=== PATIENT | female | born 1985 | race Hispanic/Latino ===

== ENCOUNTER 2021-08-22 13:12 | Observation (INO) | payer OTHER, SELFPAY ==
[2021-08-22] MEDS ORDERED: hydrALAZINE 20 MG/ML VIAL SLOW IVP PRN (14:42)
[2021-08-22] MEDS ORDERED: Docusate 100 MG CAP PO PRN (14:42)
[2021-08-22] MEDS ORDERED: Dextrose 5% in Water 1,000 ML IV PRN (16:15)
[2021-08-22] MEDS ORDERED: HumaLOG 300 UNITS/3 ML VIAL SC PRN (16:15)
[2021-08-22] MEDS ORDERED: Dextrose 50% Abboject 50 ML SYRINGE SLOW IVP PRN (16:15)
[2021-08-22 20:13] LABS: Hemoglobin A1c 5.4 % (4.0-6.0)
[2021-08-22] MEDS ORDERED: Lantus 1000 UNITS/10 ML VIAL SC SCH (21:00)
[2021-08-23] MEDS ORDERED: metFORMIN 500 MG TAB PO SCH ×2 (08:00→09:00)
[2021-08-23] MEDS: Aspirin 81 mg Enteric Coated Tablet PO SCH (09:54)
[2021-08-23] MEDS: metFORMIN 500 MG TAB PO SCH ×2 (09:54→17:44)
[2021-08-23 10:51] LABS: #Eosinphils 0.2 10x3/uL (0.0-0.5); #Monocytes 0.5 10x3/uL (0.0-1.1); #Neutrophils 4.7 10x3/uL (1.5-8.4); %Basophils 0.4 % (0.0-2.0); %Eosinophils 2.4 % (0.0-6.0); %Lymphocytes 18.3 % (18.0-47.0); %Monocytes 7.6 % (0.0-10.0); %Neutrophils 70.7 % (40.0-75.0); Hemoglobin 12.1 g/dL (12.0-15.5); Mean Corpuscular HGB CONC 33.3 g/dL (32.0-36.0); Mean Corpuscular Hemoglobin 27.7 pg (27.0-33.0); Mean Corpuscular Volume 83.1 fl (81.6-98.3); Mean Platelet Volume 10.9 fl (7.4-10.4); Platelet Count 223 10x3/uL (150-450); RBC Distribution Width 14.2 % (11.5-14.5); Red Blood Cell (RBC) Count 4.37 10x6/uL (3.90-5.03); White Blood Cell (WBC) Count 6.7 10x3/uL (3.5-10.5)
[2021-08-23 10:55] VITALS: BMI 26.2
[2021-08-23 10:58] LABS: ALT (SGPT) 38 U/L (8-55); AST (SGOT) 58 U/L (5-34); Albumin 3.1 g/dL (3.5-5.0); Alkaline Phosphatase 139 U/L (40-110); Anion Gap 13 mmol/L (10-20); BUN (Urea Nitrogen) 7 mg/dL (7.0-18.7); Bilirubin, Total 0.4 mg/dL (0.2-1.2); Calc. Creatinine Clearance 142 mL/min (70-130); Carbon Dioxide 20 mmol/L (22-29); Chloride 107 mmol/L (98-107); Globulin 3.4 g/dL (2.4-3.5); Glucose 158 mg/dL (70-105); Potassium 3.8 mmol/L (3.5-5.1); Protein, Total 6.5 g/dL (6.0-8.3); Sodium 136 mmol/L (136-145)
[2021-08-23] MEDS ORDERED: Lantus 1000 UNITS/10 ML VIAL SC SCH ×4 (12:00→21:00)
[2021-08-23 12:55] LABS: Creatinine, Urine 157.78 mg/dL (47-110)
[2021-08-23] MEDS: HumaLOG 300 UNITS/3 ML VIAL SC PRN (20:21)
[2021-08-23 20:43] LABS: SARS-CoV-2 PCR by NAA Indeterminate (NotDetected)
[2021-08-23 22:48] LABS: SARS-CoV-2 NAA Rapid Test Not Detected (NotDetected)
[2021-08-24] MEDS: HumaLOG 300 UNITS/3 ML VIAL SC PRN ×2 (05:51→11:34)
[2021-08-24] MEDS: Aspirin 81 mg Enteric Coated Tablet PO SCH (08:24)
[2021-08-24] MEDS: metFORMIN 500 MG TAB PO SCH (08:24)
[2021-08-24 11:50] VITALS: TEMP 98.4
[2021-08-24 17:20] VITALS: BP 120/72
== END 2021-08-24 15:15 | disposition home or self-care (01) ==
LOC: INTOOBSV 13:12 → CSHANTE 13:12
PROVIDERS: ADMIT Student in an Organized Health Care Education/Training Program; ATTEND Student in an Organized Health Care Education/Training Program
DX: O24.113 Pre-existing type 2 diabetes mellitus, in pregnancy, third trimester (principal); E11.65 Type 2 diabetes mellitus with hyperglycemia; O09.523 Supervision of elderly multigravida, third trimester; O99.213 Obesity complicating pregnancy, third trimester; O34.219 Maternal care for unspecified type scar from previous cesarean delivery; O36.63X0 Maternal care for excessive fetal growth, third trimester, not applicable or unspecified; O99.891 Other specified diseases and conditions complicating pregnancy; R74.01 Elevation of levels of liver transaminase levels; Z3A.31 31 weeks gestation of pregnancy; Z79.4 Long term (current) use of insulin; Z79.82 Long term (current) use of aspirin; Z79.84 Long term (current) use of oral hypoglycemic drugs; Z20.822 Contact with and (suspected) exposure to COVID-19
CPT/HCPCS: 36415; 36416; 76705; 76819; 80053; 82570; 83036; 84156; 85025; 86709; G0378; J1815; U0002; U0003; U0005

== ENCOUNTER 2021-09-09 23:24 | Day surgery (SDC) | payer SELFPAY ==
[2021-09-09 23:51] VITALS: BMI 28.5
[2021-09-10] MEDS ORDERED: hydrALAZINE 20 MG/ML VIAL SLOW IVP PRN (00:22)
[2021-09-10] MEDS ORDERED: Acetaminophen 500 MG TAB PO PRN (00:24)
[2021-09-10] MEDS ORDERED: Promethazine 25 MG TAB PO SCH (00:45)
[2021-09-10 00:56] LABS: Bilirubin 1+ (Negative); Blood, Urine Negative (Negative); Clarity Clear (Clear); Glucose, Urine (Dipstick) Normal (Negative); Ketone, Urine 5 mg/dL (Negative); Leukocyte 100 (Negative); Nitrite Negative (Negative); Protein, Urine (Dipstick) 30 mg/dl (Neg-Trace); Specific Gravity, Urine 1.025 (1.002-1.036)
[2021-09-10 01:00] LABS: Urine Culture Reflex No No
[2021-09-10 01:04] LABS: Bacteria/HPF 1+ HPF (None Seen); RBC/HPF 0-3 HPF (0-3)
[2021-09-10 01:47] LABS: Bilirubin 1+ (Negative); Blood, Urine 10 (Negative); Clarity Clear (Clear); Glucose, Urine (Dipstick) Normal (Negative); Ketone, Urine 5 mg/dL (Negative); Leukocyte 25 (Negative); Nitrite Negative (Negative); Protein, Urine (Dipstick) 15 mg/dl (Neg-Trace); Specific Gravity, Urine 1.025 (1.002-1.036)
[2021-09-10 01:54] LABS: Bacteria/HPF Rare-Few HPF (None Seen); RBC/HPF 0-3 HPF (0-3)
== END 2021-09-10 02:40 | disposition home or self-care (01) ==
LOC: CSHLD/OP 23:24
PROVIDERS: ATTEND Obstetrics & Gynecology
DX: O99.891 Other specified diseases and conditions complicating pregnancy (principal); R10.30 Lower abdominal pain, unspecified; O24.113 Pre-existing type 2 diabetes mellitus, in pregnancy, third trimester; O34.211 Maternal care for low transverse scar from previous cesarean delivery; O09.523 Supervision of elderly multigravida, third trimester; Z3A.33 33 weeks gestation of pregnancy; Z79.4 Long term (current) use of insulin; Z79.82 Long term (current) use of aspirin; Z79.84 Long term (current) use of oral hypoglycemic drugs
CPT/HCPCS: 51701; 81001; 99285; Q0169

== ENCOUNTER 2021-10-03 18:09 | Inpatient (IN) | payer MEDICAID, OTHER ==
[2021-10-03 12:51] LABS: Hemoglobin 11.8 g/dL (12.0-15.5); Mean Corpuscular Hemoglobin 25.7 pg (27.0-33.0); Mean Corpuscular Volume 77.8 fl (81.6-98.3); Mean Platelet Volume 12.9 fl (7.4-10.4); Platelet Count 206 10x3/uL (150-450); RBC Distribution Width 15.3 % (11.5-14.5); White Blood Cell (WBC) Count 6.5 10x3/uL (3.5-10.5)
[2021-10-03 13:18] LABS: Syphilis Antibody Nonreactive (Nonreactive); Syphilis Antibody Index 0.03 S/CO (<1.00 Non-Reactive)
[2021-10-03 13:19] LABS: Hep B Surf Ag Non-Reactive S/CO (NonReactive)
[2021-10-03 13:28] LABS: HBSAg Index 0.16 S/CO (0-0.99)
[2021-10-03] MEDS ORDERED: hydrALAZINE 20 MG/ML VIAL SLOW IVP PRN (18:41)
[2021-10-03 18:56] VITALS: BMI 28.3
[2021-10-03 19:10] LABS: #Monocytes 0.5 10x3/uL (0.0-1.1); #Neutrophils 4.7 10x3/uL (1.5-8.4); %Basophils 0.3 % (0.0-2.0); %Eosinophils 0.6 % (0.0-6.0); %Lymphocytes 21.5 % (18.0-47.0); %Monocytes 7.4 % (0.0-10.0); %Neutrophils 69.9 % (40.0-75.0); Hemoglobin 11.2 g/dL (12.0-15.5); Mean Corpuscular HGB CONC 32.7 g/dL (32.0-36.0); Mean Corpuscular Hemoglobin 25.6 pg (27.0-33.0); Mean Corpuscular Volume 78.3 fl (81.6-98.3); Mean Platelet Volume 12.4 fl (7.4-10.4); Platelet Count 203 10x3/uL (150-450); RBC Distribution Width 15.3 % (11.5-14.5); Red Blood Cell (RBC) Count 4.38 10x6/uL (3.90-5.03); White Blood Cell (WBC) Count 6.8 10x3/uL (3.5-10.5)
[2021-10-03 19:25] LABS: ALT (SGPT) 25 U/L (8-55); AST (SGOT) 44 U/L (5-34); Albumin 3.2 g/dL (3.5-5.0); Alkaline Phosphatase 206 U/L (40-110); Anion Gap 13 mmol/L (10-20); BUN (Urea Nitrogen) 10 mg/dL (7.0-18.7); Bilirubin, Total 0.5 mg/dL (0.2-1.2); Calc. Creatinine Clearance 169 mL/min (70-130); Calcium 9.2 mg/dL (7.8-10.44); Carbon Dioxide 19 mmol/L (22-29); Chloride 106 mmol/L (98-107); Globulin 3.6 g/dL (2.4-3.5); Glucose 99 mg/dL (70-105); Potassium 3.8 mmol/L (3.5-5.1); Protein, Total 6.8 g/dL (6.0-8.3); Sodium 134 mmol/L (136-145)
[2021-10-03 19:50] LABS: Creatinine, Urine 188.04 mg/dL (47-110)
[2021-10-03] MEDS ORDERED: Lantus 1000 UNITS/10 ML VIAL SC SCH (21:00)
[2021-10-03 21:20] LABS: SARS-CoV-2 PCR by NAA Not Detected (NotDetected)
[2021-10-03] MEDS: metFORMIN 500 MG TAB PO SCH (22:20)
[2021-10-03] MEDS ORDERED: Ondansetron PF 4 MG/2 ML Vial IVP PRN (23:07)
[2021-10-03] MEDS ORDERED: Promethazine HCl 25 MG/ML VIAL IM PRN (23:07)
[2021-10-03] MEDS ORDERED: Acetaminophen 500 MG TAB PO PRN (23:07)
[2021-10-04] MEDS ORDERED: HumaLOG 300 UNITS/3 ML VIAL SC PRN (08:06)
[2021-10-04] MEDS ORDERED: Dextrose 5% in Water 1,000 ML IV PRN (08:06)
[2021-10-04] MEDS ORDERED: Dextrose 50% Abboject 50 ML SYRINGE SLOW IVP PRN (08:06)
[2021-10-04] MEDS: metFORMIN 500 MG TAB PO SCH (08:43)
[2021-10-04] MEDS ORDERED: Ursodiol 300 MG CAP PO SCH (09:30)
[2021-10-04] MEDS ORDERED: Lantus 1000 UNITS/10 ML VIAL SC SCH (22:00)
[2021-10-05] MEDS ORDERED: Ursodiol 300 MG CAP PO SCH (08:00)
[2021-10-05] MEDS ORDERED: Bicitra 30 ML UDCUP PO PRN (10:48)
[2021-10-05] MEDS ORDERED: Famotidine/PF 20 mg/2ml Vial SLOW IVP PRN (10:48)
[2021-10-05] MEDS ORDERED: ceFAZolin 2 GM/Dextrose 50 ML 2 GM in Premix Bag 1 BAG IVPB SCH (11:00)
[2021-10-05] MEDS ORDERED: Naloxone HCl 0.4 mg/ml Vial IV PRN (11:27)
[2021-10-05] MEDS ORDERED: Ondansetron HCl/PF 4 MG/2 ML Vial IVP PRN (11:27)
[2021-10-05] MEDS ORDERED: Promethazine HCl 25 MG SUPP PR PRN (11:27)
[2021-10-05] MEDS ORDERED: Naloxone HCl 0.4 mg/ml Vial IVP PRN ×2 (11:27)
[2021-10-05] MEDS ORDERED: Meperidine HCl/PF 25 MG/ML VIAL SLOW IVP PRN (11:27)
[2021-10-05] MEDS ORDERED: Ketorolac Tromethamine 30 MG/ML VIAL IVP PRN (11:27)
[2021-10-05] MEDS ORDERED: diphenhydrAMINE 50 MG/ML VIAL IVP PRN (11:27)
[2021-10-05] MEDS ORDERED: Promethazine HCl 25 MG/ML VIAL IM PRN ×2 (11:27→16:50)
[2021-10-05] MEDS ORDERED: Fentanyl 100 MCG/2 ML VIAL SLOW IVP PRN (11:27)
[2021-10-05] MEDS ORDERED: Ondansetron PF 4 MG/2 ML Vial IVP PRN ×2 (11:27→16:50)
[2021-10-05] MEDS ORDERED: Moisturizing Cream (Eucerin) 113 GM JAR TOP PRN (11:27)
[2021-10-05] MEDS ORDERED: Communication Order-Pharmacy FS SCH (11:30)
[2021-10-05] MEDS ORDERED: Ketorolac Tromethamine 30 MG/ML VIAL IVP SCH (11:30)
[2021-10-05] MEDS ORDERED: PHENYLEPHRINE-NS 100 MCG/ML 10 ML SYRINGE ONE (12:00)
[2021-10-05] MEDS ORDERED: Morphine PF 10 MG/10 ML VIAL ONE (12:00)
[2021-10-05] MEDS ORDERED: Ketorolac Tromethamine 30 MG/ML VIAL ONE (12:00)
[2021-10-05] MEDS ORDERED: Ondansetron PF 4 MG/2 ML Vial ONE (12:00)
[2021-10-05] MEDS ORDERED: Dexamethasone 4 mg/ml Vial ONE (12:00)
[2021-10-05] MEDS ORDERED: Oxytocin 10 UNITS/ML VIAL ONE (12:00)
[2021-10-05] MEDS ORDERED: Boostrix 0.5 ML (Tdap) VIAL IM ONE (16:50)
[2021-10-05] MEDS ORDERED: NS w/ Oxytocin 30 units 500 ML IV SCH (16:50)
[2021-10-05] MEDS ORDERED: hydrALAZINE 20 MG/ML VIAL SLOW IVP PRN (16:50)
[2021-10-05] MEDS ORDERED: diphenhydrAMINE 25 MG CAP PO PRN (16:50)
[2021-10-05] MEDS ORDERED: Misoprostol 200 MCG TAB PR PRN (16:50)
[2021-10-05] MEDS: metFORMIN 500 MG TAB PO SCH (19:40)
[2021-10-05] MEDS: Lactated Ringer's 1,000 ML IV SCH (19:40)
[2021-10-05] MEDS: Docusate 100 MG CAP PO SCH (20:28)
[2021-10-05] MEDS ORDERED: Lantus 1000 UNITS/10 ML VIAL SC SCH ×2 (21:00)
[2021-10-05] MEDS ORDERED: HYDROcodone/Acetaminophen 5/325 mg Tablet PO PRN (23:30)
[2021-10-05] MEDS: Ferrous Sulfate 325 MG TAB PO SCH (23:56)
[2021-10-06] MEDS: Lactated Ringer's 1,000 ML IV SCH ×3 (04:23→16:41)
[2021-10-06 05:24] LABS: Hemoglobin 9.3 g/dL (12.0-15.5); Mean Corpuscular HGB CONC 33.1 g/dL (32.0-36.0); Mean Corpuscular Hemoglobin 25.9 pg (27.0-33.0); Mean Corpuscular Volume 78.3 fl (81.6-98.3); Mean Platelet Volume 12.5 fl (7.4-10.4); Platelet Count 166 10x3/uL (150-450); RBC Distribution Width 15.5 % (11.5-14.5); Red Blood Cell (RBC) Count 3.59 10x6/uL (3.90-5.03); White Blood Cell (WBC) Count 7.2 10x3/uL (3.5-10.5)
[2021-10-06] MEDS: Prenatal Vitamin 1 TAB PO SCH (08:40)
[2021-10-06] MEDS: HYDROcodone/Acetaminophen 5/325 mg Tablet PO PRN ×2 (08:40→13:44)
[2021-10-06] MEDS: Docusate 100 MG CAP PO SCH ×2 (08:40→21:11)
[2021-10-06] MEDS: Ferrous Sulfate 325 MG TAB PO SCH ×2 (08:41→21:11)
[2021-10-06] MEDS: metFORMIN 500 MG TAB PO SCH ×2 (08:41→16:42)
[2021-10-06] MEDS: Ibuprofen 800 MG TAB PO SCH ×2 (13:41→21:10)
[2021-10-06] MEDS: Simethicone Chewable 80 MG TAB PO PRN ×2 (13:44→18:14)
[2021-10-06] MEDS ORDERED: Lantus 1000 UNITS/10 ML VIAL SC SCH (21:00)
[2021-10-07] MEDS: HYDROcodone/Acetaminophen 5/325 mg Tablet PO PRN (00:07)
[2021-10-07] MEDS: Lactated Ringer's 1,000 ML IV SCH ×2 (01:18→08:04)
[2021-10-07] MEDS: Ibuprofen 800 MG TAB PO SCH ×2 (05:34→14:25)
[2021-10-07] MEDS: metFORMIN 500 MG TAB PO SCH (09:11)
[2021-10-07] MEDS: Ferrous Sulfate 325 MG TAB PO SCH (09:11)
[2021-10-07] MEDS: Prenatal Vitamin 1 TAB PO SCH (09:11)
[2021-10-07] MEDS: Docusate 100 MG CAP PO SCH (09:11)
[2021-10-07 11:54] VITALS: BP 116/77; TEMP 97.7
== END 2021-10-07 14:40 | disposition home or self-care (01) | DRG 786 ==
LOC: CSHLD/OP 18:09 → CSHANTE 10-04 11:02 → CSHPP 10-05 16:00
PROVIDERS: ADMIT Student in an Organized Health Care Education/Training Program; ATTEND Family Medicine
PROC: 10D00Z1 Extraction of Products of Conception, Low, Open Approach (ICD-10-PCS; principal; 2021-10-05)
DX: O13.4 Gestational [pregnancy-induced] hypertension without significant proteinuria, complicating childbirth (principal); K83.1 Obstruction of bile duct; Z37.0 Single live birth; Z3A.37 37 weeks gestation of pregnancy; Z20.822 Contact with and (suspected) exposure to COVID-19; O99.892 Other specified diseases and conditions complicating childbirth; N87.9 Dysplasia of cervix uteri, unspecified; O24.12 Pre-existing type 2 diabetes mellitus, in childbirth; Z79.4 Long term (current) use of insulin; Z79.84 Long term (current) use of oral hypoglycemic drugs; O36.63X0 Maternal care for excessive fetal growth, third trimester, not applicable or unspecified; O26.62 Liver and biliary tract disorders in childbirth; O34.211 Maternal care for low transverse scar from previous cesarean delivery; Z79.82 Long term (current) use of aspirin; Z79.899 Other long term (current) drug therapy; E11.65 Type 2 diabetes mellitus with hyperglycemia; Q51.818 Other congenital malformations of uterus
CPT/HCPCS: 36416; 51702; 80053; 82570; 84156; 85027; 86780; 86850; 86900; 86901; 87340; 99285; J0690; J1100; J1815; J1885; J2274; J2405; J2590; U0003; U0005

== ENCOUNTER → 2023-09-01 12:45 | Inpatient (IN) | payer MEDICAID, OTHER, SELFPAY ==
[2023-08-29 14:11] LABS: Hematocrit 30.3 % (34.9-44.5); Hemoglobin 9.7 g/dL (12.0-15.5); Mean Corpuscular Hemoglobin 22.9 pg (27.0-33.0); Mean Corpuscular Volume 71.6 fl (81.6-98.3); Platelet Count 206 10x3/uL (150-450); RBC Distribution Width 16.2 % (11.5-14.5); Red Blood Cell (RBC) Count 4.23 10x6/uL (3.90-5.03); White Blood Cell (WBC) Count 6.3 10x3/uL (3.5-10.5)
[2023-08-29 14:39] LABS: Syphilis Antibody Nonreactive (Nonreactive); Syphilis Antibody Index 0.08 S/CO (<1.00 Non-Reactive)
[2023-08-29 14:54] LABS: Hep B Surf Ag Non-Reactive S/CO (NonReactive)
[2023-08-30 05:23] VITALS: BMI 27.6
[2023-08-30 07:04] LABS: ALT (SGPT) 8 U/L (8-55); AST (SGOT) 19 U/L (5-34); Albumin 2.9 g/dL (3.5-5.0); Alkaline Phosphatase 373 U/L (40-110); Anion Gap 15 mmol/L (10-20); BUN (Urea Nitrogen) 9 mg/dL (7.0-18.7); Bilirubin, Total 0.6 mg/dL (0.2-1.2); Calc. Creatinine Clearance 147 mL/min (70-130); Calcium 8.8 mg/dL (7.8-10.44); Carbon Dioxide 16 mmol/L (22-29); Chloride 110 mmol/L (98-107); Estimated GFR 118; Globulin 4.1 g/dL (2.4-3.5); Glucose 101 mg/dL (70-105); Potassium 3.7 mmol/L (3.5-5.1); Sodium 137 mmol/L (136-145)
[2023-08-30 07:06] LABS: Platelet Count 197 10x3/uL (150-450)
[2023-08-30 07:07] LABS: Hematocrit 32.5 % (34.9-44.5); Hemoglobin 10.3 g/dL (12.0-15.5); Mean Corpuscular HGB CONC 31.7 g/dL (32.0-36.0); Mean Corpuscular Hemoglobin 22.8 pg (27.0-33.0); Mean Corpuscular Volume 72.1 fl (81.6-98.3); RBC Distribution Width 16.5 % (11.5-14.5); Red Blood Cell (RBC) Count 4.51 10x6/uL (3.90-5.03); White Blood Cell (WBC) Count 6.6 10x3/uL (3.5-10.5)
[2023-08-30] MEDS: Misoprostol 200 MCG TAB PR PRN (10:39)
[2023-08-30] MEDS: diphenhydrAMINE 50 MG/ML VIAL IVP PRN (10:39)
[2023-08-30] MEDS: Tranexamic Acid 1,000 MG/10 ML VIAL IVP PRN (10:40)
[2023-08-30] MEDS: Ketorolac Tromethamine 30 MG (1 mL) VIAL IVP SCH (12:00)
[2023-08-30] MEDS: ePHEDrine Sulfate 50 MG/10 ML VIAL ONE (13:09)
[2023-08-30] MEDS: Glycopyrrolate 0.2 MG/ML 5 ML SYRINGE ONE (13:09)
[2023-08-30] MEDS: Dexamethasone 4 mg/ml Vial ONE (13:09)
[2023-08-30] MEDS: Ketorolac Tromethamine 30 MG (1 mL) VIAL ONE (13:09)
[2023-08-30] MEDS: Phenylephrine 40 MG/NS 250 ML 250 ML ONE (13:10)
[2023-08-30] MEDS: Morphine PF 10 MG/10 ML VIAL ONE (13:10)
[2023-08-30] MEDS: Oxytocin 10 UNITS/ML VIAL ONE (13:10)
[2023-08-30] MEDS: Ondansetron PF 4 MG/2 ML Vial ONE (13:10)
[2023-08-30] MEDS: PHENYLEPHRINE-NS 100 MCG/ML 10 ML SYRINGE ONE (13:11)
[2023-08-30] MEDS: Boostrix 0.5 ML (Tdap) VIAL (>/=7 yrs of age) IM ONE (13:11)
[2023-08-30] MEDS: Hepatitis B Vaccine 10 MCG/0.5 ML SYR ONE (13:11)
[2023-08-30] MEDS: Famotidine/PF 20 mg/2ml Vial ONE (13:11)
[2023-08-30] MEDS: metFORMIN 500 MG TAB PO SCH (13:11)
[2023-08-30] MEDS: Docusate 100 MG CAP PO SCH ×2 (13:12→20:25)
[2023-08-30] MEDS: Prenatal Vitamin 1 TAB PO SCH (13:12)
[2023-08-30] MEDS: Ferrous Sulfate 325 MG TAB PO SCH ×2 (13:12→20:11)
[2023-08-30] MEDS: Simethicone Chewable 80 MG TAB PO PRN (20:25)
[2023-08-30] MEDS: Ketorolac Tromethamine 30 MG (1 mL) VIAL IVP PRN (20:25)
[2023-08-31] MEDS: HYDROcodone/Acetaminophen 5/325 mg Tablet PO PRN ×2 (01:33→10:35)
[2023-08-31 04:43] LABS: Hematocrit 32.8 % (34.9-44.5); Hemoglobin 10.6 g/dL (12.0-15.5); Mean Corpuscular HGB CONC 32.3 g/dL (32.0-36.0); Mean Corpuscular Hemoglobin 23.4 pg (27.0-33.0); Mean Corpuscular Volume 72.4 fl (81.6-98.3); Mean Platelet Volume 11.3 fl (7.4-10.4); Platelet Count 199 10x3/uL (150-450); RBC Distribution Width 16.2 % (11.5-14.5); Red Blood Cell (RBC) Count 4.53 10x6/uL (3.90-5.03); White Blood Cell (WBC) Count 10.1 10x3/uL (3.5-10.5)
[2023-08-31] MEDS: metFORMIN 500 MG TAB PO SCH (07:59)
[2023-08-31] MEDS: Prenatal Vitamin 1 TAB PO SCH (09:04)
[2023-08-31] MEDS: Ibuprofen 800 MG TAB PO SCH (09:05)
[2023-08-31] MEDS: Labetalol HCl 100 MG TAB PO SCH (09:07)
[2023-08-31] MEDS: Acetaminophen 325 MG TAB PO PRN (14:40)
[2023-09-01 09:30] VITALS: BP 137/84; TEMP 98.5
[~2023-09-01 12:45] MED LIST: Bicitra 30 ML UDCUP PO PRN; Bisacodyl 10 MG SUPP PR PRN; CEFAZOLIN 2 GM in Sodium Chloride 0.9% 100 ML IVPB SCH; Carboprost 250 MCG/ML AMP IM PRN; Communication Order-Pharmacy FS SCH; Dexamethasone 4 mg/ml Vial ONE; Dextrose 5% in Water 1,000 ML IV PRN; Dextrose 50% Abboject 50 ML SYRINGE SLOW IVP PRN; Diphenoxylate HCl/Atropine Tablet PO PRN; Famotidine/PF 20 mg/2ml Vial SLOW IVP PRN; Glucagon 1 MG/ML KIT IM PRN; HumaLOG 300 UNITS/3 ML VIAL SC PRN; Ibuprofen 800 MG TAB PO SCH; Ketorolac Tromethamine 30 MG (1 mL) VIAL IVP PRN; Ketorolac Tromethamine 30 MG (1 mL) VIAL ONE; Lanolin Ointment 7 GM TUBE TOP PRN; Meperidine HCl/PF 25 MG (1 mL) VIAL SLOW IVP PRN; Moisturizing Cream (Eucerin) 113 GM JAR TOP PRN; Morphine PF 10 MG/10 ML VIAL ONE; Naloxone HCl 0.4 mg/ml Vial IV PRN; Naloxone HCl 0.4 mg/ml Vial IVP PRN; Ondansetron PF 4 MG/2 ML Vial IVP PRN; Ondansetron PF 4 MG/2 ML Vial ONE; Oxytocin 10 UNITS/ML VIAL ONE; Oxytocin 30 units/NS 500 ML 500 ML IV SCH; PHENYLEPHRINE-NS 100 MCG/ML 10 ML SYRINGE ONE; Promethazine HCl 25 MG SUPP PR PRN; Promethazine HCl 25 MG/ML VIAL IM PRN; diphenhydrAMINE 25 MG CAP PO PRN; fentaNYL 50 mcg/mL 1 mL Vial SLOW IVP PRN; hydrALAZINE 20 MG/ML VIAL SLOW IVP PRN; metFORMIN 500 MG TAB PO SCH
== END | disposition home or self-care (01) | DRG 786 ==
LOC: CSHLD 08-30 04:58 → CSHPP 08-30 11:30
PROVIDERS: ADMIT Student in an Organized Health Care Education/Training Program; ATTEND Student in an Organized Health Care Education/Training Program
PROC: 10D00Z1 Extraction of Products of Conception, Low, Open Approach (ICD-10-PCS; principal; 2023-08-30)
DX: O34.211 Maternal care for low transverse scar from previous cesarean delivery (principal); K83.1 Obstruction of bile duct; O24.12 Pre-existing type 2 diabetes mellitus, in childbirth; O26.643 Intrahepatic cholestasis of pregnancy, third trimester; E11.9 Type 2 diabetes mellitus without complications; Z3A.36 36 weeks gestation of pregnancy; Z37.0 Single live birth; Z79.4 Long term (current) use of insulin; O99.824 Streptococcus B carrier state complicating childbirth; O34.593 Maternal care for other abnormalities of gravid uterus, third trimester; O13.4 Gestational [pregnancy-induced] hypertension without significant proteinuria, complicating childbirth; O99.02 Anemia complicating childbirth; D64.9 Anemia, unspecified
CPT/HCPCS: 36416; 51702; 80053; 85027; 86780; 86850; 86900; 86901; 87340; J1100; J1200; J1885; J2274; J2405; J2590; S0028